=== PATIENT | female | born 1960 | race Caucasian/White ===

== ENCOUNTER → 2018-08-26 | Outpatient (CLI) | payer OTHER ==
[2018-08-28 15:06] LABS: HPV 16 Negative (Negative); HPV 18 Negative (Negative); HPV OTHER HR TYPES Negative (Negative)
== END | disposition home or self-care (01) ==
LOC: LAB SHORT 14:22 → LAB 14:22
PROVIDERS: Internal Medicine
DX: Z01.419 Encounter for gynecological examination (general) (routine) without abnormal findings (principal)
CPT/HCPCS: 87624; G0145

== ENCOUNTER 2019-02-16 07:42 | Day surgery (SDC) | payer OTHER ==
[~2019-02-16] VITALS: Ht 177.8 cm; Wt 79.2 kg
== END 2019-02-16 10:30 | disposition home or self-care (01) ==
LOC: ORSCSDS 07:42
PROVIDERS: Ophthalmology
PROC: 080N0ZZ Alteration of Right Upper Eyelid, Open Approach (ICD-10-PCS; principal; 2019-02-16 09:15)
PROC: 080P0ZZ Alteration of Left Upper Eyelid, Open Approach (ICD-10-PCS; principal; 2019-02-16 09:15)
DX: H02.831 Dermatochalasis of right upper eyelid (principal); H02.834 Dermatochalasis of left upper eyelid
CPT/HCPCS: J2250; J2405; J2704; J3010; J7120